=== PATIENT | female | born 1950 | race African-American/Black ===

== ENCOUNTER 2019-01-15 13:54 | Outpatient (CLI) | payer MEDICARE ==
--- NOTE | 2019-01-18 16:25 | Magnetic Resonance Report ---
BILATERAL BREAST MRI WITHOUT AND WITH CONTRAST: 01/15/19 13:54:00 CLINICAL: Abnormal [facility] mammogram and right breast ultrasound. I have reports but no images from 12/21/18 and 11/27/18. The mammogram report describes circumscribed densities in the posterior aspect of the upper outer right breast in the ultrasound report describes a hyperechoic mass measuring 7 x 5 x 5 mm in the right axillary tail. TECHNIQUE: Axial 1.0-mm T1 without, axial high resolution 2.0-mm T2 and axial 1.0-mm dynamic Vibrant high-resolution postcontrast T1 fat saturation sequences on a 1.5 Kate magnet. The examination was performed with an 8 channel dedicated [place] breast coil. Post processing with CAD and subtraction was performed on an [employer] workstation. 13.0 cc of Multihance was injected without incident for the contrast portion of the exam. Consent was obtained prior to the administration of the contrast. FINDINGS: The quality of the examination is degraded by motion. Right: Minimal background parenchymal enhancement. 2 adjacent enhancing lesions in the upper outer quadrant approximately 12 cm from the nipple measure 9.3 x 6.1 x 2.4 mm and 8.1 x 5.9 x 3.2 mm. Both of these lesions appear to be lymph nodes with central fat on MIP or images. However, margins are not smooth on some of the images. Both demonstrate heterogeneous enhancement with mixed kinetics and greater then 80% type III washout. An oval smooth inferior mass at the cleavage 12.9 cm from the nipple measures 10.7 x 8.9 x 7.1 mm. This lesion demonstrates heterogeneous enhancement with mixed kinetics, and 614% peak enhancement and 44% type III washout. However, the lesion is T2 hyperintense which is a strong indicator of a benign lesion. It is also very close to the skin. No other mass or suspicious enhancement of the right breast. No suspicious right axillary or right internal mammary lymph nodes. Left: Minimal background parenchymal enhancement. No mass or suspicious enhancement. No suspicious left axillary or left internal mammary lymph nodes. IMPRESSION: 1. A suspicious 9.3 mm lymph node in the axillary tail of the right breast approximately 12 cm from the nipple. Recommend ultrasound-guided needle biopsy to exclude malignancy. 2. An adjacent 8.1 mm lesion appears to be a benign intramammary lymph node with no suspicious features. 3. 10.7 mm superficial mass at the inferior cleavage in the right breast. Recommend targeted ultrasound for further evaluation at the time of biopsy of the other lesion in the right breast. 4. Negative left breast. RIGHT BI-RADS 4--Suspicious LEFT BI-RADS 1 - - Negative
== END 2019-01-15 13:55 | disposition home or self-care (01) ==
LOC: SPVIMAG 13:54
PROVIDERS: ATTEND Internal Medicine
DX: R92.8 Other abnormal and inconclusive findings on diagnostic imaging of breast (principal)
CPT/HCPCS: A9577; C8908; 77049

== ENCOUNTER 2019-02-25 14:04 | Outpatient (CLI) | payer MEDICARE ==
--- NOTE | 2019-02-25 15:48 | Ultrasound Report ---
ULTRASOUND GUIDED NEEDLE CORE BIOPSY RIGHT BREAST WITH CLIP PLACEMENT: 02/25/19 14:30:00 CLINICAL: An enhancing 11 mm mass of the right breast at the cleavage approximately 13 cm from the nipple on MRI COMPARISON :01/15/19 FINDINGS: The procedure was explained to the patient and informed consent was obtained. Ultrasound demonstrated an oval slightly irregular solid hypoechoic mass at 4 o'clock 9 cm from the nipple. It measures approximately 8 x 4 x 7 mm and correlates with the lesion identified on MRI. It is approximately 2 mm deep to skin and does not appear to communicate with the skin. I marked the breast with a felt tip marker and a time out was called. The skin was prepped with Betadine and anesthetized with 1% lidocaine. Needle core biopsy was performed through a tiny dermatotomy using ultrasound guidance, 2% lidocaine with epinephrine for deep anesthesia and a 14-gauge Achieve biopsy device. 4 cores were obtained and placed in formalin. The mass show partial collapse with sampling. A clip was deployed within the mass. The patient tolerated the procedure well and there were no apparent complications. Hemostasis was achieved with minimal pressure and a sterile dressing was applied. A postprocedure mammogram was performed since the lesion was not identified mammographically. She left the department in good condition and was given instructions for wound care and followup. IMPRESSION: Uncomplicated ultrasound guided needle core biopsy with clip placement right breast.
--- NOTE | 2019-02-25 16:04 | Ultrasound Report ---
RIGHT BREAST ULTRASOUND: 02/25/19 14:04:00 CLINICAL: Abnormal recent [facility] mammogram and abnormal MRI. COMPARISON: 01/15/19 MRI breast. No mammographic images. FINDINGS: Ultrasoundof the right breast was performed in the upper-outer quadrant and axilla to evaluate for abnormal lymph nodes. Several small lymph nodes with benign morphology are identified in the axilla and 2 lymph nodes with central fat and benign morphology are identified at 10 o'clock 13 cm from the nipple. These subcentimeter lymph nodes correlate with the lymph nodes identified on MRI. No suspicious lymph nodes and no mass of the upper outer quadrant. Ultrasound of the lower inner right breast in the area of the cleavage demonstrated an oval slightly irregular solid hypoechoic superficial mass approximately 2 mm deep to the skin. It measures approximately 8 x 7 x 4 mm and correlates with the lesion identified by MRI. IMPRESSION: A suspicious 8 x 7 x 4 mm right breast mass at 4 o'clock 9 cm from the nipple. Recommend ultrasound guided needle core biopsy. No other mass and no suspicious lymph nodes. BI-RADS 4--Suspicious
== END 2019-02-25 14:05 | disposition home or self-care (01) ==
LOC: SPVWC 14:04
PROVIDERS: ATTEND Surgery
DX: D49.3 Neoplasm of unspecified behavior of breast (principal)
CPT/HCPCS: 88305